=== PATIENT | female | born 1965 | race Caucasian/White ===

== ENCOUNTER 2017-01-06 11:19 | Observation (INO) ==
[2017-01-06] MEDS ORDERED: 0.9 % Sodium Chloride 1,000 ML IVC ONE ×2 (11:23→13:59)
[2017-01-06] MEDS ORDERED: Ondansetron 4 MG/2 ML VIAL IVP ONE ×2 (11:36→14:06)
[2017-01-06] MEDS ORDERED: *HR* HYDROmorphone (PF) 1 MG/ML SYRINGE IVP ONE ×4 (11:36→22:04)
--- NOTE | 2017-01-06 11:40 | Emergency Department Note ---
Disposition Clinical Impression: Vomiting, Abnormal chest x-ray, Upper abdominal pain, Obesity, Renal insufficiency, Gallbladder disease, Kidney stones, Abnormal urinalysis, Pulmonary nodule, Cholelithiasis, Constipation, Hydronephrosis, Elevated blood pressure reading Disposition: Admitted As Inpatient Referrals: NO,PCP [Primary Care Provider] - General Adult HPI - General Chief complaint: ED Abdominal Pain Stated complaint: Epigastric Pain Time Seen by Provider: 01/06/17 11:23 Source: patient, EMS Limitations: no limitations - History of Present Illness HPI Narrative: 51-year-old female sent from [place] ER for concerns regarding abdominal pain and possibly needing an ultrasound. The patient describes a 4 day history of upper abdominal pain with nonbloody emesis. There is no history of trauma. No diarrhea. No flank pain or back pain. There is no history of chest pain or shortness of breath. The patient is not anticoagulated. The patient has a history of hysterectomy but no other abdominal surgeries. There is no history of leg swelling or pain or coughing up blood no fever. No trouble moving the arms or legs independently no unilateral arm or leg weakness or numbness slurred speech or confusion. There is no history of cough runny nose ear pain or sore throat. The patient received analgesic medication at [place], but still describes severe pain. She has no personal history of aneurysm. A CT scan at that facility revealed bilateral kidney stones as well as gallstones and a potentially thickened gallbladder wall, laboratory testing showed no major abnormalities. Pain Scale: 0 - Related Data Home Medications Medication Instructions Recorded Confirmed Depakote (12 HR) 500 mg PO BID 05/10/15 01/06/17 Gabapentin [Neurontin] 800 mg PO TID 05/10/15 01/06/17 LORazepam [Ativan] 1 mg PO QID 05/10/15 01/06/17 Seroquel 1,000 mg PO HS 05/10/15 01/06/17 Oxycodone HCl/Acetaminophen 1 each PO Q6H PRN 01/06/17 01/06/17 [Percocet 10-325 mg Tablet] Phenazopyridine [Pyridium] 300 mg PO TID 01/06/17 01/06/17 Tamsulosin [Flomax] 0.4 mg PO BID 01/06/17 01/06/17 Allergies Allergy/AdvReac Type Severity Reaction Status Date / Time No Known Allergies Allergy Verified 01/06/17 07:42 All systems ED: reviewed and negative except as stated. Past Medical History - Past Medical History Medical history: Reports: hypertension, kidney stones, seizures Surgical history: Reports: ANA/BSO Psychiatric history: Reports: bipolar, depression - Social History Smoking Status: Current every day smoker Smokeless Tobacco Status: No Alcohol use: Reports: none Drug use: Reports: unknown Physical Exam - General Limitations: no limitations General appearance: alert, anxious - Head Head exam: atraumatic, normocephalic, normal inspection - Eye Eye exam: Present: normal appearance, PERRL, EOMI - ENT ENT exam: normal exam, normal oropharynx, mucous membranes moist, normal external ear exam - Neck Neck exam: Present: normal inspection, full ROM, trachea midline. Absent: tenderness - Chest Chest inspection: Present: symmetric chest wall rise. Absent: tenderness - Respiratory Respiratory exam: Present: normal lung sounds bilaterally. Absent: respiratory distress, wheezes, stridor, accessory muscle use, prolonged expiratory phase - Cardiovascular Cardiovascular exam: Present: regular rate, normal rhythm, normal heart sounds - Abdominal Exam Abdominal exam: Present: soft, tenderness. Absent: distention, guarding, rebound, rigidity, normal bowel sounds, diminished bowel sounds, tenderness at McBurney's Point, ascites, pulsatile mass, hernia Abdominal tenderness: Present: RUQ, epigastrium, severe - Extremities Exam Extremities exam: Present: normal inspection, full ROM, normal capillary refill. Absent: tenderness, pedal edema, joint swelling, calf tenderness - Expanded Lower Extremity Exam Neurovascular/Tendon exam: Present: normal capillary refill. Absent: motor deficit, sensory deficit, tendon deficit, extremity cold to touch, pallor - Back Exam Back exam: Present: normal inspection, full ROM. Absent: tenderness, CVA tenderness (R), CVA tenderness (L), vertebral tenderness - Neurological Exam Neurological exam: Present: alert, oriented X3, CN II-XII intact. Absent: motor sensory deficit - Psychiatric Psychiatric exam: Present: anxious - Skin Skin exam: Present: warm, dry, intact, normal color. Absent: rash, cyanosis, diaphoresis, erythema, pallor, mottled Course Vital Signs Temperature 97.6 F 01/06/17 11:19 Pulse Rate 72 01/06/17 11:19 Respiratory Rate 15 01/06/17 11:19 Blood Pressure 179/114 01/06/17 11:19 O2 Sat by Pulse Oximetry 93 01/06/17 11:19 Temperature 97.6 F 01/06/17 11:19 Pulse Rate 78 01/06/17 12:52 Respiratory Rate 18 01/06/17 12:52 Blood Pressure 184/78 01/06/17 12:52 O2 Sat by Pulse Oximetry 96 01/06/17 12:52 Oxygen Delivery Oxygen Delivery Room Air Medical Decision Making - MDM Narrative Medical decision making narrative: The patient describes severe abdominal pain. She has right upper quadrant and midepigastric pain on examination. Her CT scan suggests gallbladder disease, her ultrasound also shows abnormalities with potential concerns for ductal obstruction. Based on her pain and abnormal gallbladder studies, I called Dr. Portillo and reviewed the case with him, he recommends medical admit, MRCP, and surgical consultation. Discussed the case with Dr. Galvan, hospitalist on-call who has accepted the patient to his care. Zosyn recommended, Zosyn ordered. MRCP ordered. The patient does have a chest x-ray abnormality as well, Levaquin initially dosed. Cardiac testing essentially negative. Lactate negative. CRP minimal elevation. Acute or acute on chronic cholecystitis with possible ductal obstruction, cholelithiasis noted. The patient has multiple abnormal findings on her CT including kidney stones with an element of hydronephrosis. Initial admission per hospitalist service with surgical consult which has been ordered. The patient is stable pending admission. - Lab Data Lab results reviewed: Yes I reviewed the patient's lab results. Lab Results 01/06/17 01/06/17 01/06/17 Range/Units 13:18 13:18 13:18 PT 11.2 (9.4-12.1) Seconds INR 1.0 APTT 31.9 (26.0-36.0) Seconds Lactic Acid 1.2 (0.5-2.2) mmol/L Troponin I 0.01 (0-0.03) ng/mL C-Reactive Protein (Less than 5) mg/L 01/06/17 Range/Units 13:18 PT (9.4-12.1) Seconds INR APTT (26.0-36.0) Seconds Lactic Acid (0.5-2.2) mmol/L Troponin I (0-0.03) ng/mL C-Reactive Protein 11 H (Less than 5) mg/L - Radiology Data Radiology results reviewed: Yes I reviewed the patient's radiology results.
[2017-01-06] MEDS ORDERED: Levofloxacin 750 MG/150 ML 750 MG/150 ML BAG IVPB ONE (13:22)
[2017-01-06 13:30] LABS: Prothrombin Time 11.2 Seconds (9.4-12.1)
[2017-01-06 13:32] LABS: Activated Partial Thrombo Time 31.9 Seconds (26.0-36.0)
[2017-01-06] MEDS ORDERED: Piperacillin/Tazobactam 3.375 GM in D5% in Water (Mini-Bag+) 100 ML IVPB ONE (13:56)
[2017-01-06] MEDS ORDERED: Naloxone 0.4 MG/ML INJ IVP PRN (15:28)
[2017-01-06] MEDS ORDERED: Ondansetron 4 MG/2 ML VIAL IVP PRN (15:30)
[2017-01-06] MEDS ORDERED: *HR* HYDROmorphone (PF) 1 MG/ML SYRINGE IVP PRN ×2 (15:30→18:07)
[2017-01-06] MEDS ORDERED: 0.9 % Sodium Chloride 1,000 ML IVC SCH (15:30)
[2017-01-06] MEDS: *HR* LORazepam 1 MG TABLET PO SCH ×2 (16:57→22:34)
--- NOTE | 2017-01-06 17:04 | Internal Med History&Physical ---
<Jaun Galvan - Last Filed: 01/06/17 20:34> Date of Encounter: 01/06/17 Internal Medicine - H&P: HPI History of present illness: Ms. Ramirez is a 51 year old female Internal Medicine - H&P: Meds Divalproex (12 HR) [Depakote (12 HR)] 500 mg PO BID #0 05/10/15 [History] Gabapentin [Neurontin] 800 mg PO TID 05/10/15 [History] LORazepam [Ativan] 1 mg PO QID 05/10/15 [History] Quetiapine Fumarate [Seroquel] 1,200 mg PO HS #0 05/10/15 [History] Oxycodone HCl/Acetaminophen [Percocet 10-325 mg Tablet] 1 tab PO Q6H PRN [History] Phenazopyridine [Pyridium] 300 mg PO TID 01/06/17 [History] Tamsulosin [Flomax] 0.4 mg PO BID 01/06/17 [History] Allergies No Known Allergies Allergy (Verified 01/06/17 07:42) All Systems PM: A 10-system review of systems was performed and is negative for pertinent findings except as documented above in the HPI. - Constitutional Vitals: Temp Pulse Resp BP Pulse Ox 98.5 F 74 18 178/102 94 01/06/17 19:19 01/06/17 19:19 01/06/17 19:19 01/06/17 19:19 01/06/17 19:19 - Attending Attestation I examined this patient and my medical decision-making was reviewed with the Advanced Practice Nurse. I agree with the documented findings, disposition and treatment plan as described except to the extent set forth below. We will treat her with broad-spectrum IV antibiotics to cover gram negatives and anaerobes. Zosyn as an adequate choice. On exam she is very tender to palpation in the right upper quadrant with voluntary guarding. Plan: IV Zosyn. IV Dilaudid for pain. General surgical consult. She is at high risk for morbidity and complications due to administration of IV controlled substances. <Vania Mejia - Last Filed: 01/07/17 00:44> Date of Encounter: 01/07/17 Time of Encounter: 17:03 Assessment and Plan (1) Cholelithiasis Current visit: Yes Status: Acute Patient has been experiencing 4 days of epigastric to right upper quadrant pain nausea and vomiting unable to eat or drink. CT scan did reveal cholelithiasis with mild wall thickening of the gallbladder and questionable mild prominence of con common bile duct ultrasound was obtained which revealed cholelithiasis and abnormal gallbladder findings are nonspecific chronic or acute cholecystitis is difficult to exclude common bile duct dilatation. Surgery was consult did who suggested MRCP which was ordered We will continue nothing by mouth status IV fluids Pain medication IV opioids-close monitoring due to high risk medication Started on Zosyn Qualifiers: Cholelithiasis location: bile duct Cholecystitis presence: with cholecystitis Cholecystitis acuity: acute and chronic Biliary obstruction: without biliary obstruction Qualified Code(s): K80.46 - Calculus of bile duct with acute and chronic cholecystitis without obstruction (2) Hydronephrosis Current visit: Yes Status: Acute 1 patient has a past history of chronic kidney stones CT of abdomen did reveal nonobstructing right renal calculi mild dilatation of the proximal collecting system of both the right and left kidney no definite obstructing stone is identified ultrasound revealed moderate right hydronephrosis. We will continue with IV fluids as well as pain medication We will obtain urinalysis rule out possible infection Qualifiers: Hydronephrosis type: other Qualified Code(s): N13.39 - Other hydronephrosis (3) DVT prophylaxis Current visit: Yes Status: Acute 1 Lovenox (4) History of seizures Current visit: No Status: Chronic Patient states she has history of seizures last seizure was 3 weeks ago we will continue with her Depakote will place patient on seizure precautions Internal Medicine - H&P: HPI Chief complaint: abd pain Admitted From: Emergency Dept History of present illness: Ms. Ramirez is a 51 year old female past medical history of hypertension kidney stones and seizures bipolar depression. Patient describes severe abdominal pain nausea vomiting over the past 4 days originating in right upper quadrant and mid epigastric area she denies any hematemesis or diarrhea flank pain or back pain. No recent trauma. She denies any shortness of breath or chest pain. Patient is not on any anticoagulation she does have a history of hysterectomy but no other abdominal surgeries. She denies any fevers chills she states that her last seizure was approximately 3 weeks ago her last BM was 3 days ago. She presented to [place] emergency department for evaluation CT scan was suggest gallbladder disease, revealed gallstones and potential thickened gallbladder wall. She was sent from [place] ER to this facility for further evaluation and workup. In our ER she underwent ultrasound which was concerning for ductal obstruction. Lab work and a lactate of 1.2 troponin 0.01 CRP was 11 WBC 9.9 ER physician did speak with Dr. Duffy and reviewed the case with him. Recommended a MRCP, surgery consult. Patient was admitted for further workup and evaluation. Presently the patient does not appear to be in any respiratory distress she denies any chest pain her lung sounds are clear heart sounds are S1 and S2 with no rubs clicks, murmurs noted she does complain of epigastric pain abdomen is soft tenderness to epigastric to right upper quadrant with guarding. Presently patient is hemodynamically stable I reviewed this case with Dr. Galvan who agrees with plan. Past Med Surg Social Fam HX - Past Medical History Medical history: hypertension, kidney stones, seizures Psychiatric history: bipolar, depression - Past Surgical History Surgical History: ANA/BSO - Social History Smoking Status: Current every day smoker Smokeless Tobacco Status: No Alcohol use: none Drug use: unknown - Family History Mother Living Status: Hx Family Cardiac Disorders: Yes Hx Family Respiratory Disorders: No Hx Family Cancer: No Hx Family GI Disorders: No Hx Family Genitourinary Disorders: No Hx Family Endocrine Disorder: No Hx Family Musculoskeletal Disorders: No Hx Family Neuromuscular Disorders: No All Systems PM: A 10-system review of systems was performed and is negative for pertinent findings except as documented above in the HPI. - Constitutional Constitutional: no chills, no fever(s), no night sweats - EENT Eyes: no change in vision, no discharge, no pain, no photophobia Nose, mouth and throat: no dysphagia, no nasal discharge, no neck pain, no sore throat - Cardiovascular Cardiovascular ROS IM: no chest pain, no diaphoresis, no dyspnea, no lightheadedness, no palpitations, no syncope - Respiratory Respiratory: no cough, no dyspnea, no wheezing, no excessive phlegm production - Gastrointestinal Gastrointestinal: abdominal pain, nausea, vomiting - Genitourinary Genitourinary: no change in urinary stream, no dysuria, no flank pain, no hematuria - Musculoskeletal Musculoskeletal ROS IM: no numbness, no tingling - Integumentary Integumentary IM: no rash, no unusual bruising - Neurological Neurological ROS: no confusion, no convulsions, no focal weakness, no numbness, no tingling, no tremor(s) - Hematologic/Lymphatic Hematologic/Lymphatic: no easy bruising - Constitutional Vitals: Temp Pulse Resp BP Pulse Ox 97.6 F 78 17 182/119 94 01/06/17 11:19 01/06/17 14:24 01/06/17 14:34 01/06/17 14:34 01/06/17 14:24 General appearance: Present: A&O X 3, answers questions appropriately - Head Head exam: Present: atraumatic, normocephalic - Eye Eye exam: Present: PERRL, conjuntiva pink, sclera anicteric Pupils: Present: PERRL - Neck Neck exam general surgery: Present: supple, trachea midline. Absent: lymphadenopathy - Respiratory Respiratory exam: Present: CTAB. Absent: accessory muscle use, rales, rhonchi, wheezes - Cardiovascular Cardiovascular exam: Present: RRR, +S1, +S2. Absent: diastolic murmur, gallop, rubs, systolic murmur - GI/Abdominal GI/Abdominal exam: Present: guarding, normal bowel sounds, soft, tenderness, no peritoneal signs. Absent: distended - Extremities Exam Extremities exam: Present: warm, radial pulses palpable and symetrical. Absent : calf tenderness, cyanotic, pedal edema - Neurological Exam Neurological exam: Present: CN II-XII intact, oriented X3, no focal deficits. Absent: pronater drift, facial droop, speech deficit - Skin Skin exam: Present: dry, intact Internal Med - H&P Results - Labs Labs: Lab work per [facility] chemistry sodium 141 potassium 3.8 chloride 108 bicarbonate 20 BUN 18 creatinine 1.17 glucose 118 CBC CBC 9.9 hemoglobin 13.5 hematocrit 41.5 is 347 Lactate 1.2 troponin 0.01 CRP 11 PT 11.2 INR 1 PTT 31.9
[2017-01-06] MEDS: Piperacillin/Tazobactam 3.375 GM in D5% in Water (Mini-Bag+) 100 ML IVPB SCH (22:33)
[2017-01-06] MEDS: Divalproex (12 HR) 500 MG TABLET PO SCH (22:34)
[2017-01-07 01:59] LABS: Basophils # 0.1 K/mcL (0.0-0.2); Basophils % 0.4 %; Eosinophils # 0.1 K/mcL (0.0-0.6); Eosinophils % 0.4 %; Hematocrit 39.1 % (35.3-44.9); Hemoglobin 12.7 g/dL (11.5-15.4); Immature Granulocytes % 0.4 % (0-4); Immature Platelets 2.3 % (1.1-6.1); Lymphocytes % 14.2 %; Mean Corpuscular HGB Conc 32.5 g/dL (31.6-35.5); Mean Corpuscular Hemoglobin 28.5 pg (28.0-33.3); Mean Corpuscular Volume 87.7 fL (83.0-100.0); Monocytes # 0.9 K/mcL (0.0-1.3); Monocytes % 6.8 %; Neutrophils # 10.8 K/mcL (1.6-8.9); Platelet Count 325 K/mcL (140-400); Red Blood Count 4.46 M/mcL (3.82-4.97); Red Cell Distribution Width 13.6 % (11.5-14.5); Segmented Neutrophils % 77.8 %
[2017-01-07 02:10] LABS: BUN/Creatinine Ratio 9 (6-26); Blood Urea Nitrogen 8 mg/dL (7-20); Calcium 8.8 mg/dL (8.6-10.8); Carbon Dioxide 22 mEq/L (19-29); Chloride 109 mEq/L (98-109); Glucose 120 mg/dL (70-99); Magnesium 1.6 mg/dL (1.6-2.6); Osmolality,Calculated 288 (280-300); Potassium 3.4 mEq/L (3.5-4.5); Sodium 139 mEq/L (136-145); eGFR For African Americans > 60 (> 60); eGFR For Non-African Americans > 60 (> 60)
[2017-01-07] MEDS: *HR* HYDROmorphone 2 MG/ML SYRINGE IVP PRN ×2 (04:10→07:50)
[2017-01-07 05:23] LABS: Bilirubin,Urine Negative (Negative); Blood,Urine Negative (Negative); Clarity,Urine Clear (Clear); Color,Urine Yellow (Yellow); Glucose,Urine (UA) Normal (Normal); Ketones,Urine Negative (Negative); Leukocyte Esterase,Urine Negative (Negative); Nitrite,Urine Negative (Negative); PH,Urine 6.5 pH Units (5.0-8.0); Protein,Urine Negative (Neg-Trace); Specific Gravity,Urine 1.013 (1.010-1.025); Urobilinogen,Urine Normal (Normal)
[2017-01-07] MEDS: Piperacillin/Tazobactam 3.375 GM in D5% in Water (Mini-Bag+) 100 ML IVPB SCH (05:59)
[2017-01-07] MEDS: 0.9 % Sodium Chloride 1,000 ML IVC SCH ×3 (05:59→18:46)
[2017-01-07] MEDS ORDERED: *HR* Enoxaparin 40 MG/0.4 ML SYRINGE SQ SCH (06:00)
[2017-01-07] MEDS: Divalproex (12 HR) 500 MG TABLET PO SCH ×2 (07:50→20:15)
[2017-01-07] MEDS ORDERED: Pantoprazole 40 MG VIAL IVP SCH (09:00)
[2017-01-07] MEDS: *HR* HYDROmorphone (PF) 1 MG/ML SYRINGE IVP PRN ×9 (10:29→22:56)
[2017-01-07] MEDS ORDERED: *HR* LORazepam 1 MG TABLET PO SCH (12:30)
[2017-01-07] MEDS ORDERED: Albuterol 2.5 MG/3 ML NEBULIZER IH STA (13:59)
--- NOTE | 2017-01-07 14:05 | General Surgery Consult Note ---
Date of Encounter: 01/07/17 Time of Encounter: 13:30 History of Present Illness Reason for consult: gallstones Requesting physician: Bayron Moreno History of present illness: 51-year-old female, referred to [facility], after being transferred from [facility] for further evaluation severe upper abdominal pain with nausea and vomiting over the past 4 days. Patient describes pain in the right upper quadrant and epigastrium. CT of the abdomen and pelvis completed [facility] showed a distended gallbladder with mild degree of wall thickening. Several stones were seen within the gallbladder along with mild dilatation of the common bile duct. There was possible prominence of the portal triads though this finding was limited by the lack of oral IV contrast. Dilatation of the proximal renal collecting system on the left without obstructing calculus was identified. The right kidney demonstrated multiple nonobstructing calculi with a cluster of calcifications in the inferior pole. The bowel and colon appeared normal the appendix was visualized also appeared normal. Evidence of previous hysterectomy was noted. The patient's symptomatology and CT findings were consistent with acute cholecystitis for which the patient was transferred to [facility] for further evaluation. An ultrasound of the gallbladder completed shortly after arrival at [facility] showed moderate right hydronephrosis, sludge and multiple stones within the gallbladder with oral and gallbladder wall thickening. No pericholecystic fluid was identified and the sonographic Martin sign was not elicited. Due to scribe dilatation of the common bile duct , 8.2 mm, an MRCP was completed. This showed numerous stones within the gallbladder, severe gallbladder wall thickening with pericholecystic fluid. The stone is impacted in the neck of the gallbladder likely the source of the patient's symptoms. There was no evidence of intra-or extrahepatic biliary duct dilatation no detected choledocholithiasis. These studies were all personally reviewed with [facility]. On presentation to [facility]: White count was 9.9, hemoglobin 13.5, hematocrit 41.5, platelet count 349,000. Differential was unremarkable. Electrolytes & Bun were within normal limits but creatinine was 1.17. LFTs were notable for an alkaline phosphatase of 128 the other LFTs were unremarkable. Amylase and lipase were normal at 22 and 31 respectively. Repeat labs completed this morning showed new development of a leukocytosis of 13.9; hemoglobin hematocrit diminished to 12.7 and 39.1, likely due to IV fluids/hydration; neutrophils are notably elevated at 10.8%. Potassium is full and the 3.4 but other electrolytes & BUN have remained WNL. The creatinine has normalized, 0.94. Alkaline phosphatase remains elevated at 127. Most recent urinalysis was unremarkable with a specific gravity 1.030, pH 6.5 with no urine protein, glucose, ketones or blood. Urine microscopic was also negative with no reported cell counts. Past medical history: Is notable for chronic, recurrent renal stones; seizure disorder; hypertension, bipolar disorder with depression Surgical history: Hysterectomy (ANA/BSO); multiple transurethral renal stone extractions Social history: Patient is a smoker on a daily basis; she denies any alcohol or drug use, however, a urine tox screen was positive for benzodiazepines and marijuana. physical examination: Age-appropriate woman resting comfortably in her hospital bed. She indicates that she is in distress due to her persistent abdominal pain. Vital signs: The patient has been afebrile, currently 98.3; pulse 63-77; respiratory rate 15-18; blood pressure 114/74. SPO2 on room air 94-96%. Skin is warm without obvious jaundice Lungs: Were clear to auscultation. There is no obvious pain on inspiration but when asked, the patient indicated that she did have pain on inspiration Heart: Regular rate, no appreciable murmurs Abdomen: Obese but soft with minimal epigastric and right upper quadrant tenderness. No obvious intra-abdominal masses, no rebound. Bowel sounds were hypoactive. I did not elicit any CVAT. Extremities without obvious clubbing cyanosis or edema Impression: 51-year-old female with acute calculus cholecystitis transferred to [facility] after presenting to [facility] with 4 day history severe right upper and epigastric abdominal pain, N/V. No N/V since transfer. The patient was examined; CT, USGB and MRCP were personally reviewed along with the pertinent labs. Surgery was recommended and discussed with the patient. The patient is a reasonable candidate for laparoscopic cholecystectomy but understands that an open cholecystectomy may become necessary. Risks surgery including hemorrhage, infection, intra-abdominal abscess, bile leak, injury to adjacent ducts, vessels, organs, or bowel. Potential cardiac and respiratory risks such as dysrhythmia, ND, and pneumonia were also discussed. Postcholecystectomy diarrhea may also develop. The patient is breast understanding and is willing to proceed with surgery. This be villanueva today and be completed as soon as possible. Past Med Surg Social Fam HX - Past Medical History Medical history: hypertension, kidney stones, seizures Psychiatric history: bipolar, depression - Past Surgical History Surgical History: ANA/BSO - Social History Smoking Status: Current every day smoker Smokeless Tobacco Status: No Alcohol use: none Drug use: unknown - Family History Mother Living Status: Hx Family Cardiac Disorders: Yes Hx Family Respiratory Disorders: No Hx Family Cancer: No Hx Family GI Disorders: No Hx Family Genitourinary Disorders: No Hx Family Endocrine Disorder: No Hx Family Musculoskeletal Disorders: No Hx Family Neuromuscular Disorders: No Medications and Allergies Divalproex (12 HR) [Depakote (12 HR)] 500 mg PO BID #0 05/10/15 [History] Gabapentin [Neurontin] 800 mg PO TID 05/10/15 [History] LORazepam [Ativan] 1 mg PO QID 05/10/15 [History] Quetiapine Fumarate [Seroquel] 1,200 mg PO HS #0 05/10/15 [History] Oxycodone HCl/Acetaminophen [Percocet 10-325 mg Tablet] 1 tab PO Q6H PRN [History] Phenazopyridine [Pyridium] 300 mg PO TID 01/06/17 [History] Tamsulosin [Flomax] 0.4 mg PO BID 01/06/17 [History] Allergies No Known Allergies Allergy (Verified 01/06/17 07:42) Review of Systems All systems PM: A 10-system review of systems was performed and is negative for pertinent findings except as documented above in the HPI. General Surgery Exam Initial Vital Signs Temp Pulse Resp BP Pulse Ox 97.6 F 72 15 179/114 93 01/06/17 11:19 01/06/17 11:19 01/06/17 11:19 01/06/17 11:19 01/06/17 11:19 Exam Initial Vital Signs Temp Pulse Resp BP Pulse Ox 97.6 F 72 15 179/114 93 01/06/17 11:19 01/06/17 11:19 01/06/17 11:19 01/06/17 11:19 01/06/17 11:19 Results - Labs 01/07/17 01:39 01/07/17 01:39 Abnormal lab results WBC 13.9 K/mcL (4.3-11.1) H 01/07/17 01:39 MPV 9.0 fL (9.4-12.4) L 01/07/17 01:39 Neutrophils # 10.8 K/mcL (1.6-8.9) H 01/07/17 01:39 Potassium 3.4 mEq/L (3.5-4.5) L 01/07/17 01:39 Glucose 120 mg/dL (70-99) H 01/07/17 01:39 POC Glucose 94 (58-89) H 01/07/17 11:24 Alkaline Phosphatase 127 Units/L (38-126) H 01/07/17 01:39 C-Reactive Protein 11 mg/L (Less than 5) H 01/06/17 13:18 Diabetes panel 01/07/17 01/07/17 Range/Units 01:39 01:39 Sodium 139 (136-145) mEq/L Potassium 3.4 L (3.5-4.5) mEq/L Chloride 109 (98-109) mEq/L Carbon Dioxide 22 (19-29) mEq/L BUN 8 D (7-20) mg/dL Creatinine 0.94 (0.57-1.11) mg/dL Glucose 120 H (70-99) mg/dL Calcium 8.8 (8.6-10.8) mg/dL Alkaline Phosphatase 127 H (38-126) Units/L Calcium panel 01/07/17 Range/Units 01:39 Calcium 8.8 (8.6-10.8) mg/dL Pituitary panel 01/07/17 Range/Units 01:39 Sodium 139 (136-145) mEq/L Potassium 3.4 L (3.5-4.5) mEq/L Chloride 109 (98-109) mEq/L Carbon Dioxide 22 (19-29) mEq/L BUN 8 D (7-20) mg/dL Creatinine 0.94 (0.57-1.11) mg/dL Glucose 120 H (70-99) mg/dL Calcium 8.8 (8.6-10.8) mg/dL Adrenal panel 01/07/17 01/07/17 Range/Units 01:39 01:39 Sodium 139 (136-145) mEq/L Potassium 3.4 L (3.5-4.5) mEq/L Chloride 109 (98-109) mEq/L Carbon Dioxide 22 (19-29) mEq/L BUN 8 D (7-20) mg/dL Creatinine 0.94 (0.57-1.11) mg/dL Glucose 120 H (70-99) mg/dL Calcium 8.8 (8.6-10.8) mg/dL Alkaline Phosphatase 127 H (38-126) Units/L All other labs normal. Consult Discharge Plan - Plan Referrals: NO,PCP [Primary Care Provider] -
[2017-01-07] MEDS ORDERED: 0.9 % Sodium Chloride 1,000 ML IVC SCH (14:15)
[2017-01-07] MEDS ORDERED: Bupivacaine/EPI 1:200k 0.25%PF 30 ML VIAL ONE (14:40)
[2017-01-07] MEDS ORDERED: Gabapentin 300 MG CAPSULE PO SCH (15:00)
--- NOTE | 2017-01-07 15:14 | Anesthesia Evaluation PreOp ---
Date of Encounter: 01/07/17 Time of Encounter: 15:12 - Past History Planned Operation: Laparoscopic Cholecystectomy Cardiac History: HTN Pulmonary History: Smoker (15 years) [employer] History: Seizures (well controlled on meds. last seizure 1 month ago) Other Medical History: Other (bipolar) Anesthesia History: No Prior Anesthetic Complications, Past Anesthesia (TAHBSO) Alcohol Use: none Drug use: unknown Medications and Allergies Divalproex (12 HR) [Depakote (12 HR)] 500 mg PO BID #0 05/10/15 [History] Gabapentin [Neurontin] 800 mg PO TID 05/10/15 [History] LORazepam [Ativan] 1 mg PO QID 05/10/15 [History] Quetiapine Fumarate [Seroquel] 1,200 mg PO HS #0 05/10/15 [History] Oxycodone HCl/Acetaminophen [Percocet 10-325 mg Tablet] 1 tab PO Q6H PRN [History] Phenazopyridine [Pyridium] 300 mg PO TID 01/06/17 [History] Tamsulosin [Flomax] 0.4 mg PO BID 01/06/17 [History] Allergies No Known Allergies Allergy (Verified 01/06/17 07:42) - Meds/Allergy Pre-op Review Medications Reviewed: Yes Allergies Reviewed: Yes Beta Blockers on Current Med List: No Anesthesia Results - Labs 01/07/17 01:39 01/07/17 01:39 - Imaging EKG: report reviewed (01/06/2017 SR, low QRS voltage in precordial leads) Anesthesia Exam Vital Signs/O2 Sat, Most Current Temp Pulse Resp BP Pulse Ox 98.3 F 77 16 114/74 94 01/07/17 11:21 01/07/17 11:21 01/07/17 14:32 01/07/17 11:21 01/07/17 14:32 Height: 5'9''/1.75 m Weight: 186 lbs/84.8 kg NPO (# of Hours): 8 Pain Scale: 0 Pain Scale Used: Numeric (1 - 10) - HEENT Pupil (Motor): EOMI Mallampati: II Teeth: Poor dentition (multiple broken teeth) Oral Opening: Greater than 3 - [employer] LOC: Oriented [employer] Motor: Normal RUE, Normal LUE, Normal RLE, Normal LLE, Normal Face [employer] Sensory: Normal: RUE, LUE, RLE, LLE, Face - Cardiac Rhythm: Regular Murmur: None - Pulmonary Breath Sounds: bilateral Clear Respiratory Effort: Symmetrical Anesthesia Assess/Plan ASA Score: 2 Modified Alcira Scale for Level of Consciousness: Cooperative, oriented, and tranquil Anesthetic Plan: General Monitoring Plan: Standard Monitors Recovery Plan: PACU
[2017-01-07] MEDS ORDERED: *HR* FentaNYL (PF) 100 MCG/2 ML VIAL ONE (15:27)
[2017-01-07] MEDS ORDERED: Lidocaine -MPF 4% 5 ML AMPUL ONE (15:27)
[2017-01-07] MEDS ORDERED: Lidocaine -MPF 2% 2 ML VIAL ONE ×2 (15:27)
[2017-01-07] MEDS ORDERED: *HR* Propofol 200 MG/20 ML VIAL IVP ONE ×2 (15:27→15:58)
[2017-01-07] MEDS ORDERED: *HR* Succinylcholine 200 MG/10 ML VIAL IVP ONE (15:27)
[2017-01-07] MEDS ORDERED: Ondansetron 4 MG/2 ML VIAL ONE (15:34)
[2017-01-07] MEDS ORDERED: Neostigmine Methylsulfate 3 MG/3 ML SYRINGE ONE (15:34)
[2017-01-07] MEDS ORDERED: Dexamethasone 4 MG/ML VIAL ONE (15:34)
[2017-01-07] MEDS ORDERED: *HR* Rocuronium Bromide 50 MG/5 ML VIAL ONE (15:35)
[2017-01-07] MEDS ORDERED: *HR* HYDROmorphone 2 MG/ML SYRINGE ONE (15:51)
[2017-01-07] MEDS ORDERED: Albuterol 2.5 MG/3 ML NEBULIZER IH ONE ×2 (16:00→17:10)
--- NOTE | 2017-01-07 16:01 | Internal Med Progress Note ---
Date of Encounter: 01/07/17 Time of Encounter: 15:58 - Assessment and plan (1) Acute cholecystitis Current Visit: Yes Status: Acute (2) Renal insufficiency Current Visit: Yes Status: Acute (3) DVT prophylaxis Current Visit: Yes Status: Acute - Subjective Interval history: Cely Linda is a 51-year-old female brought in for abdominal pain and acute cholecystitis. Surgery has seen the patient and plan to do surgery today. Patient is awake and does not seem in any discomfort. Examination of the belly showed some tenderness but otherwise unremarkable. - Constitutional Vitals: Temp Pulse Resp BP Pulse Ox 98.3 F 77 16 114/74 94 01/07/17 11:21 01/07/17 11:21 01/07/17 14:32 01/07/17 11:21 01/07/17 14:32 General appearance: Present: A&O X 3, answers questions appropriately - Head Head exam: Present: atraumatic, normocephalic - Eye Eye exam: Present: PERRL, conjuntiva pink, sclera anicteric Pupils: Present: PERRL - Neck Neck exam general surgery: Present: supple, trachea midline. Absent: lymphadenopathy - Respiratory Respiratory exam: Present: CTAB. Absent: accessory muscle use, rales, rhonchi, wheezes - Cardiovascular Cardiovascular exam: Present: RRR, +S1, +S2. Absent: diastolic murmur, gallop, rubs, systolic murmur - GI/Abdominal GI/Abdominal exam: Present: normal bowel sounds, soft, tenderness, no peritoneal signs. Absent: distended - Extremities Exam Extremities exam: Present: warm, radial pulses palpable and symetrical. Absent : calf tenderness, cyanotic, pedal edema - Neurological Exam Neurological exam: Present: CN II-XII intact, oriented X3, no focal deficits. Absent: pronater drift, facial droop, speech deficit - Skin Skin exam: Present: dry, intact Internal Medicine: Result - Labs CBC & Chem 7: 01/07/17 01:39 01/07/17 01:39 Labs: Short CBC 01/07/17 Range/Units 01:39 WBC 13.9 H (4.3-11.1) K/mcL Hgb 12.7 (11.5-15.4) g/dL Hct 39.1 (35.3-44.9) % Plt Count 325 (140-400) K/mcL Neutrophils # 10.8 H (1.6-8.9) K/mcL BMP 01/07/17 01:39 Sodium 139 Potassium 3.4 L Chloride 109 Carbon Dioxide 22 BUN 8 D Creatinine 0.94 Glucose 120 H Calcium 8.8 Liver Function 01/07/17 Range/Units 01:39 Alkaline Phosphatase 127 H (38-126) Units/L Urine 01/07/17 Range/Units 05:00 Urine Color Yellow (Yellow) Urine Clarity Clear (Clear) Urine pH 6.5 (5.0-8.0) pH Units Ur Specific Kaplan 1.013 (1.010-1.025) Urine Protein Negative (Neg-Trace) mg/dL Urine Glucose (UA) Normal (Normal) mg/dL - ABG Interpretation ABG results: PT/INR, D-dimer PT 11.2 Seconds (9.4-12.1) 01/06/17 13:18 Consult Discharge Plan - Plan Referrals: NO,PCP [Primary Care Provider] -
[2017-01-07] MEDS ORDERED: *HR* Promethazine 25 MG/ML VIAL IVP PRN (16:07)
[2017-01-07] MEDS ORDERED: Ringers Solution, Lactated 500 ML IVC ONE ×2 (17:06→17:30)
--- NOTE | 2017-01-07 17:16 | Operative Note ---
Date of procedure: 01/07/17 Pre-op diagnosis: acute calculus cholecystitis Post-op diagnosis: same Procedure: Laparoscopic cholecystectomy Complications: None apparent Anesthesia: GETA Local Anesthetics: 0.25% Sensorcaine HCL with Epinephrine 1:200,000 SubQ (cc) ( 18 mL) Surgeon: Miguel Portillo Estimated blood loss (cc): 200 IV fluids (cc): 1,300 Specimen: gallbladder Condition: stable Disposition: PACU Procedure in Detail: The patient was brought to the operating room where she was placed supine upon the operating table. The patient was appropriately identified as to person and procedure. The accuracy of this information was confirmed by the procedure team. The patient was intubated and anesthetized under the supervision of Dr. Merlyn Rowell. The abdomen was prepped and draped in usual sterile fashion. The gallbladder was not palpable when the abdomen was examined under anesthesia. Several milliliters of 0.25% bupivacaine with 1-200,000 epinephrine was infiltrated into the infraumbilical skin. A small transverse incision was made, dissection was carried to the fascia. Additional bupivacaine with epinephrine was infiltrated into the fascia. The fascia was grasped, elevated, and incised. An 11 mm Xcel port was established. The rigid laparoscope was placed within the obturator to visualize passage through the layers of the anterior abdominal wall. Once the abdominal cavity was accessed, the obturator was replaced by the rigid laparoscope. The abdomen was insufflated with gaseous carbon dioxide. There was no obvious visible injury from established in the port. Under direct visualization, 3 additional ports were placed along the right costal margin in the subxiphoid, midclavicular, and anterior axillary lines. The gallbladder was tensely distended and was aspirated of a proximally 60 mL of a green turbid fluid. The gallbladder was thick-walled but grasped and retracted. Multiple adhesions of omentum and duodenum were evident adherent to the infundibulum of the gallbladder. These adhesions were sharply dissected, care was taken to avoid injuring these adjacent structures such as the duodenum. The hepatoduodenal ligament was selected. Eventually the cystic duct was identified and skeletonized. The cystic duct measured approximately 1 cm in diameter. Cystic duct was clipped twice distally and once near the infundibulum of gallbladder. The cystic duct was then divided. Cystic artery was identified, skeletonized, clipped twice proximally, clipped once distally, and divided. The gallbladder was dissected from the liver bed using the Ethicon harmonic ne. Once the gallbladder was from the liver bed, it was placed in the endoscopic pouch and removed through the infraumbilical opening. The gallbladder and its contained stones were recovered and sent to pathology for analysis. The liver bed demonstrated some some hemorrhage which was partially controlled by additional application of the Ethicon harmonic ne and then further controlled with application of the Yasmeen hemostatic agent. Enoxaparin had been administered to the patient pre op. Once adequate hemostasis was achieved, the pneumoperitoneum was evacuated, the instrumentation was removed. The fascia of the infraumbilical opening was closed with interrupted [id number] 0 Vicryl using S retractors. The skin edges of the port sites were approximated with 4-0 subcuticular Vicryl. The incisions were sealed with Dermabond dermal adhesive. The patient was taken to recovery in stable condition. Needle, sponge, and instrument counts were correct at the close of the case.
[2017-01-07] MEDS ORDERED: Acetaminophen IV 1,000 MG/100 ML INFUS..BTL IVPB ONE (17:20)
--- NOTE | 2017-01-07 18:07 | Anesthesia Evaluation Post Op ---
Date of Encounter: 01/07/17 Time of Encounter: 18:05 - Vital Signs Vital Signs: Vital Signs - Last 8 Hours Temp Pulse Resp BP Pulse Ox 01/07/17 18:03 97.4 F L 73 20 156/96 93 01/07/17 17:53 74 24 148/97 92 01/07/17 17:43 73 24 136/93 93 01/07/17 17:33 97.4 F L 73 24 121/87 96 01/07/17 17:23 74 24 117/79 92 01/07/17 17:13 95 24 94/74 90 01/07/17 17:03 98.0 F 86 24 93/83 90 01/07/17 14:32 16 94 01/07/17 11:21 98.3 F 77 15 114/74 94 Intake and Output 01/07/17 01/07/17 01/07/17 07:59 15:59 23:59 Intake Total 243 / 243 1100 / 1100 500 / 500 Output Total 350 / 350 0 / 0 200 / 200 Balance -107 / -107 1100 / 1100 300 / 300 Intake: IV Fluids 243 / 243 1100 / 1100 500 / 500 0.9 % Sodium Chloride 1, 143 / 143 1000 / 1000 000 ML @ 125 mls/hr IVC . Q8H [facility] Rx#:[id number] Lactated Ringers 500 ML @ 500 / 500 1000 mls/hr IVC .Q30M ONE Rx#:[id number] Zosyn 3.375 GM In 100 / 100 100 / 100 Dextrose 5% (Minibag+) 100 ML 100 ML @ 25 mls/hr IVPB Q8H [facility] Rx#: [id number] Oral 0 / 0 Output: Urine 350 / 350 0 / 0 0 / 0 Estimated Blood Loss 200 / 200 Other: Meal NPO NPO Weight 84.8 kg Blood Glucose* 98 94 Patient Weight 01/07/17 23:59 Weight 84.8 kg - Lungs Lungs: Clear Ascult./Percussion - Airway Airway: Non-obstructed, Obstructed - Cardiovascular Regular Rate, Baseline Rhythm - Mental Status Mental Status: Alert & Oriented, Answers Appropriately - Pain Pain Scale: 3 (TOLERABLE WITH PAIN MEDS ) - Nausea Vomiting Nausea Vomiting: Not Present - Hydration Hydration: Tolerates oral liquids - Discharge PostOp Status: Transfer Patient to floor
[2017-01-07] MEDS ORDERED: Naloxone 0.4 MG/ML INJ IVP PRN (18:23)
[2017-01-07] MEDS ORDERED: Acetaminophen 325 MG TABLET PO PRN (18:23)
[2017-01-07] MEDS ORDERED: Ondansetron 4 MG/2 ML VIAL IVP PRN (18:23)
--- NOTE | 2017-01-07 18:57 | Electrocardiograph Report ---
[place] [address] Test Date: 2017-01-06 Pat Name: Vanesa Ramirez Department: 105 Room: 3A33 Gender: F [employer]: : 1965 Requested By: Bayron Moreno Order Number: [id number] Reading MD: Shantal Manzo Measurements Intervals [place] Rate: 73 P: 54 IN: 177 QRS: 23 QRSD: 97 T: 62 QT: 425 QTc: 451 Interpretive Statements SINUS RHYTHM POSSIBLE RIGHT VENTRICULAR CONDUCTION DELAY [RSR (QR) IN V1/V2] Electronically Signed On 01-07-2017 18:55:31 EDT by Shantal Manzo
[2017-01-07] MEDS: *HR* OxyCODONE/APAP 10/325 TABLET PO PRN (19:57)
[2017-01-07] MEDS: Gabapentin 300 MG CAPSULE PO SCH (20:15)
[2017-01-08] MEDS: *HR* HYDROmorphone (PF) 1 MG/ML SYRINGE IVP PRN ×5 (01:01→10:01)
[2017-01-08] MEDS: *HR* OxyCODONE/APAP 10/325 TABLET PO PRN ×3 (02:58→20:17)
[2017-01-08] MEDS: 0.9 % Sodium Chloride 1,000 ML IVC SCH (06:28)
[2017-01-08] MEDS ORDERED: Potassium Chloride Elixir 20 MEQ/15 ML UDC PO ONE (08:11)
[2017-01-08] MEDS: Gabapentin 300 MG CAPSULE PO SCH ×2 (08:24→16:21)
[2017-01-08] MEDS: Divalproex (12 HR) 500 MG TABLET PO SCH (08:24)
[2017-01-08] MEDS ORDERED: *HR* LORazepam 1 MG TABLET PO SCH (09:00)
[2017-01-08 09:02] LABS: Basophils % 0.2 %; Hematocrit 37.5 % (35.3-44.9); Hemoglobin 11.6 g/dL (11.5-15.4); Immature Granulocytes % 0.8 % (0-4); Lymphocytes # 0.9 K/mcL (0.6-4.6); Lymphocytes % 5.5 %; Mean Corpuscular HGB Conc 30.9 g/dL (31.6-35.5); Mean Corpuscular Hemoglobin 27.8 pg (28.0-33.3); Mean Corpuscular Volume 89.7 fL (83.0-100.0); Mean Platelet Volume 9.1 fL (9.4-12.4); Monocytes # 1.6 K/mcL (0.0-1.3); Monocytes % 9.6 %; Neutrophils # 14.1 K/mcL (1.6-8.9); Platelet Count 317 K/mcL (140-400); Red Blood Count 4.18 M/mcL (3.82-4.97); Red Cell Distribution Width 13.8 % (11.5-14.5); Segmented Neutrophils % 83.9 %
[2017-01-08 09:03] LABS: Alanine Aminotransferase 25 Units/L (0-55); Albumin 3.3 g/dL (3.5-5.0); Alkaline Phosphatase 122 Units/L (38-126); Aspartate Amino Transferase 32 Units/L (5-34); BUN/Creatinine Ratio 10 (6-26); Bilirubin,Total 0.5 mg/dL (0.2-1.2); Blood Urea Nitrogen 9 mg/dL (7-20); Calcium 9.1 mg/dL (8.6-10.8); Carbon Dioxide 23 mEq/L (19-29); Chloride 105 mEq/L (98-109); Globulin 3.3 g/dL (2.4-3.5); Glucose 123 mg/dL (70-99); Osmolality,Calculated 284 (280-300); Potassium 3.6 mEq/L (3.5-4.5); Sodium 137 mEq/L (136-145); Total Protein 6.6 g/dL (6.0-8.3); eGFR For African Americans > 60 (> 60); eGFR For Non-African Americans > 60 (> 60)
--- NOTE | 2017-01-08 10:22 | General Surgery Progress Note ---
Date of Encounter: 01/08/17 Time of Encounter: 09:55 Subjective Patient reports: still having pain Narrative: General Surgery - POD #1 - status post laparoscopic cholecystectomy Patient still complaining of pain, using IV Dilaudid hourly despite available oral analgesics Afebrile, 98.9; pulse currently 75, ranged 75-127; respiratory rate 18; blood pressure 163/97. SPO2 on 2 L/min nasal cannula 95% Lungs: Clear to auscultation Abdomen: Tenderness localized to the port sites; abdomen otherwise fairly unremarkable to exam. Active bowel sounds. Port sites clean and dry. Patient complaining of no appetite and has not eaten any of the meals provided Laboratories: White count 16.8, likely in response to surgery. Neutrophil percentage increased to 14.1. Hemoglobin 11.6 with hematocrit 37.5- slightly decreased, likely due to Perioperative IV fluids. Platelet count 317,000. Electrolytes, BUN, creatinine within normal limits; hypokalemia corrected to 3.6. LFTs within normal limits; alkaline phosphatase has normalized. Impression: POD #1 - status post laparoscopic cholecystectomy for acute calculous cholecystitis Acceptable postoperative status. Leukocytosis expected to resolve as healing progresses Patient complaining of incisional pain, using IV Dilaudid hourly. I have discussed this with the patient, recommending Tylenol and/or Percocet rather than IV Dilaudid. The IV Dilaudid will be discontinued. Oral analgesics are still available. Postoperative anorexia is common and also expected to resolve Objective Vital Signs - Last 8 Hours Temp Pulse Resp BP Pulse Ox 01/08/17 06:45 98.9 F 75 18 163/97 95 01/08/17 04:40 98.3 F 102 18 164/101 95 Intake and Output 01/07/17 01/08/17 01/08/17 23:59 07:59 15:59 Intake Total 500 / 500 925 / 925 120 / 120 Output Total 450 / 450 0 / 0 Balance 50 / 50 925 / 925 120 / 120 Intake: IV Fluids 500 / 500 925 / 925 0.9 % Sodium Chloride 1, 925 / 925 000 ML @ 75 mls/hr IVC . [id number] [facility] Rx#: [id number] Lactated Ringers 500 ML @ 500 / 500 1000 mls/hr IVC .Q30M [facility] Rx#:[id number] Oral 0 / 0 0 / 0 120 / 120 Output: Urine 250 / 250 0 / 0 Estimated Blood Loss 200 / 200 Other: Meal Breakfast Percent of Meal Consumed 0% # Voids 1 Weight 83.7 kg Blood Glucose* 123 Patient Weight 01/08/17 23:59 Weight 83.7 kg - Labs 01/08/17 08:20 01/08/17 08:20 Diabetes panel 01/08/17 Range/Units 08:20 Sodium 137 (136-145) mEq/L Potassium 3.6 (3.5-4.5) mEq/L Chloride 105 (98-109) mEq/L Carbon Dioxide 23 (19-29) mEq/L BUN 9 (7-20) mg/dL Creatinine 0.89 (0.57-1.11) mg/dL Glucose 123 H (70-99) mg/dL Calcium 9.1 (8.6-10.8) mg/dL AST 32 (5-34) Units/L ALT 25 (0-55) Units/L Alkaline Phosphatase 122 (38-126) Units/L Albumin 3.3 L (3.5-5.0) g/dL Calcium panel 01/08/17 Range/Units 08:20 Calcium 9.1 (8.6-10.8) mg/dL Albumin 3.3 L (3.5-5.0) g/dL Pituitary panel 01/08/17 Range/Units 08:20 Sodium 137 (136-145) mEq/L Potassium 3.6 (3.5-4.5) mEq/L Chloride 105 (98-109) mEq/L Carbon Dioxide 23 (19-29) mEq/L BUN 9 (7-20) mg/dL Creatinine 0.89 (0.57-1.11) mg/dL Glucose 123 H (70-99) mg/dL Calcium 9.1 (8.6-10.8) mg/dL Adrenal panel 01/08/17 Range/Units 08:20 Sodium 137 (136-145) mEq/L Potassium 3.6 (3.5-4.5) mEq/L Chloride 105 (98-109) mEq/L Carbon Dioxide 23 (19-29) mEq/L BUN 9 (7-20) mg/dL Creatinine 0.89 (0.57-1.11) mg/dL Glucose 123 H (70-99) mg/dL Calcium 9.1 (8.6-10.8) mg/dL Total Bilirubin 0.5 (0.2-1.2) mg/dL AST 32 (5-34) Units/L ALT 25 (0-55) Units/L Alkaline Phosphatase 122 (38-126) Units/L Albumin 3.3 L (3.5-5.0) g/dL - VTE Documentation of Mechanical Device: Intermittent pneumatic compression device Consult Discharge Plan - Plan Referrals: Miguel Portillo MD [Non-Partnered Physician] -
[2017-01-08] MEDS ORDERED: Sennosides 8.6 MG TABLET PO SCH (12:00)
--- NOTE | 2017-01-08 14:30 | Discharge Summary ---
Date of Encounter: 01/08/17 Time of Encounter: 14:20 - Discharge Diagnosis (1) Acute cholecystitis Priority: Primary Status: Acute (2) Renal insufficiency Priority: Secondary Status: Acute (3) DVT prophylaxis Priority: Secondary Status: Acute (4) Elevated blood pressure reading Priority: Secondary Status: Acute - Discharge Medications Prescriptions: Docusate [Colace] 200 mg PO BID #30 capsule HYDROcodone/Acet 5/325 mg [Holland 5-325 mg] 1 tab PO Q6H PRN #20 tab PRN Reason: Moderate Pain Omeprazole [PriLOSEC] 40 mg PO DAILY@0630 #30 capsule.[address] Garibay Medications: Divalproex (12 HR) [Depakote (12 HR)] 500 mg PO BID #0 05/10/15 [History] Gabapentin [Neurontin] 800 mg PO TID 05/10/15 [History] LORazepam [Ativan] 1 mg PO QID 05/10/15 [History] Quetiapine Fumarate [Seroquel] 1,200 mg PO HS #0 05/10/15 [History] Oxycodone HCl/Acetaminophen [Percocet 10-325 mg Tablet] 1 tab PO Q6H PRN [History] Phenazopyridine [Pyridium] 300 mg PO TID 01/06/17 [History] Tamsulosin [Flomax] 0.4 mg PO BID 01/06/17 [History] Acetaminophen [Tylenol] 650 mg PO Q6HR PRN #0 tablet 01/08/17 [Rx] Docusate [Colace] 200 mg PO BID #30 capsule 01/08/17 [Rx] HYDROcodone/Acet 5/325 mg [Holland 5-325 mg] 1 tab PO Q6H PRN #20 tab 01/08/17 [Rx ] Omeprazole [PriLOSEC] 40 mg PO DAILY@0630 #30 capsule. 01/08/17 [Rx] Allergies/Adverse Reactions: Allergies No Known Allergies Allergy (Verified 01/06/17 07:42) Date of admission: 01/06/17 14:13 Primary care physician: PCP NO Discharging clinician: Marcelino Booth Anticipated date of discharge: 01/08/17 - Patient Status Disposition: Home, Self-Care Condition: Fair Overall status at discharge: patient is progressing back to baseline - Discharge Instructions Follow Up With: Miguel Portillo MD [Non-Partnered Physician] - Forms: ED Satisfaction Letter, Work/School Release - Diet and Activity Activity: resume usual activities as tolerated Diet: advance to your usual diet Hospital course: Ms.Tracy Linda is a 51-year-old female brought in for abdominal pain and acute cholecystitis. She has laparoscopic cholecystectomy by Dr. Mcqueen. Dr. Mcqueen has examined the patient today and I recommended to let her go. Patient abdominal examination is quite benign as the surrounding belly area is quite soft bowel sound active no organomegaly or discoloration. She will be given some pain medication as she is complaining of quite a bit of pain. White count was slightly elevated but surgery has been noted that this is postop leukocytosis. She is advised to present to ER if symptoms develop or worsen otherwise follow for surgery next week. - Time Spent with Patient Total time spent providing and/or coordinating discharge services: Greater than 30 minutes - Constitutional Vitals: Temp Pulse Resp BP Pulse Ox 99.3 F 95 16 160/97 95 01/08/17 11:56 01/08/17 11:56 01/08/17 11:56 01/08/17 11:56 01/08/17 11:56 General appearance: Present: A&O X 3, answers questions appropriately - Head Head exam: Present: atraumatic, normocephalic - Eye Eye exam: Present: PERRL, conjuntiva pink, sclera anicteric Pupils: Present: PERRL - Neck Neck exam general surgery: Present: supple, trachea midline. Absent: lymphadenopathy - Respiratory Respiratory exam: Present: CTAB. Absent: accessory muscle use, rales, rhonchi, wheezes - Cardiovascular Cardiovascular exam: Present: RRR, +S1, +S2. Absent: diastolic murmur, gallop, rubs, systolic murmur - GI/Abdominal GI/Abdominal exam: Present: normal bowel sounds, soft, no peritoneal signs. Absent: distended, tenderness Additional comments: Abdomen around the surgical site is largely soft with a surgical release. Slightly tender no discharge no rebound tenderness - Extremities Exam Extremities exam: Present: warm, radial pulses palpable and symetrical. Absent : calf tenderness, cyanotic, pedal edema - Neurological Exam Neurological exam: Present: CN II-XII intact, oriented X3, no focal deficits. Absent: pronater drift, facial droop, speech deficit - Skin Skin exam: Present: dry, intact - VTE Documentation of Mechanical Device: Intermittent pneumatic compression device
[2017-01-08 19:21] VITALS: BP 135/85
== END 2017-01-09 | disposition home or self-care (01) ==
LOC: EMEROO 11:19 → 3ANU 11:19
PROVIDERS: ADMIT Internal Medicine; ATTEND Internal Medicine

== ENCOUNTER 2018-06-20 21:28 | Inpatient (IN) ==
[2018-06-21] MEDS ORDERED: Naloxone 0.4 MG/ML INJ IVP PRN ×2 (00:34→01:11)
[2018-06-21] MEDS ORDERED: *HR* OxyCODONE Immed Rel 5 MG TABLET PO PRN (01:11)
[2018-06-21 01:26] LABS: Basophils % 0.3 %; Eosinophils % 0.1 %; Hematocrit 40.8 % (35.3-44.9); Immature Granulocytes % 0.6 % (0-4); Immature Platelets 2.1 % (1.1-6.1); Lymphocytes # 0.8 K/mcL (0.6-4.6); Lymphocytes % 7.6 %; Mean Corpuscular HGB Conc 31.9 g/dL (31.6-35.5); Mean Corpuscular Hemoglobin 29.3 pg (28.0-33.3); Mean Corpuscular Volume 91.9 fL (83.0-100.0); Mean Platelet Volume 9.2 fL (9.4-12.4); Monocytes # 0.2 K/mcL (0.0-1.3); Monocytes % 1.4 %; Neutrophils # 9.8 K/mcL (1.6-8.9); Platelet Count 339 K/mcL (140-400); Red Blood Count 4.44 M/mcL (3.82-4.97); Red Cell Distribution Width 13.7 % (11.5-14.5)
[2018-06-21] MEDS ORDERED: *HR* Heparin 5,000 UNIT/ML VIAL IVP PRN (01:36)
[2018-06-21] MEDS ORDERED: *HR* Heparin 5,000 UNIT/ML VIAL IVP ONE (01:36)
[2018-06-21 01:51] LABS: Alanine Aminotransferase 36 Units/L (7-52); Albumin 4.1 g/dL (3.5-5.7); Albumin/Globulin Ratio 1.6 (1.1-2.2); Alkaline Phosphatase 128 Units/L (34-104); Aspartate Amino Transferase 19 Units/L (13-39); BUN/Creatinine Ratio 13 (6-26); Bilirubin,Total 0.4 mg/dL (0.3-1.0); Blood Urea Nitrogen 12 mg/dL (6-20); Calcium 9.3 mg/dL (8.6-10.3); Carbon Dioxide 25 mEq/L (23-29); Chloride 101 mEq/L (98-107); Globulin 2.5 g/dL (2.4-3.5); Glucose 141 mg/dL (70-105); Osmolality,Calculated 282 (280-300); Potassium 4.2 mEq/L (3.5-5.1); Sodium 135 mEq/L (136-145); Total Protein 6.6 g/dL (6.4-8.9); eGFR For Non-African Americans > 60 (> 60)
[2018-06-21 01:52] LABS: Troponin I < 0.03 ng/mL (< 0.04)
[2018-06-21] MEDS: Heparin 25,000 UNIT/500 ML D5W 25,000 UNIT/500 ML BAG IVC SCH ×2 (02:00→20:36)
[2018-06-21] MEDS: *HR* LORazepam 1 MG TABLET PO PRN ×2 (02:11→06:02)
[2018-06-21] MEDS: Acetaminophen 325 MG TABLET PO PRN ×2 (02:11→10:44)
[2018-06-21 02:19] LABS: Activated Partial Thrombo Time 95.3 Seconds (26.0-36.0); Prothrombin Time 11.2 Seconds (9.4-12.1)
[2018-06-21] MEDS: traMADol 50 MG TABLET PO PRN ×3 (03:24→20:35)
--- NOTE | 2018-06-21 04:52 | Internal Med History&Physical ---
Date of Encounter: 06/21/18 Time of Encounter: 04:52 Internal Medicine - H&P: HPI Chief complaint: B/L Pulmonary Embolism History of present illness: Ms. Ramirez is a 52 year old female with a past medical history of bipolar disorder, anxiety, hypertension, nephrolithiasis, seizures, and previous history of suicidal attempt who initially presented to [facility] with complaints of epigastric pain with nausea and vomiting. Patient was noted to be hypoxemic on room air saturating at 88%. After further workup CTA revealed bilateral subsegmental PEs. Patient was subsequently started on a heparin drip. Additionally, while at [facility], patient endorsed to the staff that she's had suicidal thoughts and "does not want to live like this any longer". Patient also endorses that she had been off her bipolar medications for the past 2 weeks because she could not pay the co-pay. As such she states that her mood has been "crashing". A mental health counselor at [facility] was contacted and would see the patient when she is medically cleared. Patient arrived, found to be hemodynamically stable and cooperative. Patient states that she has been having epigastric pain associated with vomiting and dry heaves for the past 3 days with 6 episodes of nonbloody slightly bilious emesis. Pain was described as sharp and sore, worse with deep inspiration. On arrival here patient was satting at 91% on room air and has been endorsing pleuritic chest pain upon deep inspiration. She does report a previous history of a DVT and was placed on several months of blood thinners. She also states that her mother has a history of blood clots as well. Patient otherwise denies recent travel, recent surgery, previous history of malignancy or weight loss. Patient also states that she noted chest pain this morning around 10:30 described as predominantly left-sided heaviness associated with difficulty breathing. Patient does smoke a pack a day and has been doing so for the past 20 years. Denies any alcohol use. She reports a significant family history of cardiac disease, noting that her mother of a [place]. Her father also has heart disease. Patient also endorses a dry cough for the last couple days. She initially thought she may have had the flu though denies any sick contacts. She does endorse fever and chills for the past 7 days and stated that she checked her temperature at home and found to be 100.4 yesterday. CTA performed at [facility] reported nonspecific findings which may represent nonvisualized PEs versus multifactorial pneumonia. Patient did have a mildly elevated white blood cell count of 14.3. Patient is also reporting right-sided flank pain for the past 5 days which she states is similar to her previous episodes of kidney stones. She states she has an extensive history of kidney stones and has had surgical removal as well as lithotripsy in the past. She states that her urine is also dark in color which she equates to blood in her urine based on previous experience. CT of the abdomen performed at [facility] showed a nonobstructing right sided renal calculi measuring up to 3 mm with mild to moderate right-sided hydronephrosis. However when compared to previous exams, stone appear to be chronic. UA performed at [facility] showed trace leukocyte esterase, negative nitrite and minimal evidence of hematuria. At this time patient denies any suicidal ideation or thoughts of harming herself. She states that she believes that she misunderstood the questioning while at [facility] with regards to thoughts of harming herself. Patient does see a psychiatrist as outpatient. Past Med Surg Social Fam HX - Past Medical History Medical history: hypertension, kidney stones, seizures Additional medical history: Last seizure has occured today at around 0900. urinary incontinence at times. Psychiatric history: bipolar, depression - Past Surgical History Surgical History: cholecystectomy, hysterectomy Additional surgical history: lithotripsy x 9 - Social History Smoking Status: Current every day smoker Packs per day: 1 Smokeless Tobacco Status: No Alcohol use: none Drug use: none - Family History Mother History Unknown: Yes Living Status: Hx Family Cardiac Disorders: Yes Hx Family Respiratory Disorders: No Hx Family Cancer: No Hx Family GI Disorders: No Hx Family Endocrine Disorder: No Hx Family Neuromuscular Disorders: No Internal Medicine - H&P: Meds Divalproex (12 HR) [Depakote (12 HR)] 500 mg PO BID #0 05/10/15 [History] Gabapentin [Neurontin] 800 mg PO TID 05/10/15 [History] LORazepam [Ativan] 1 mg PO QID 05/10/15 [History] Quetiapine Fumarate [Seroquel] 1,200 mg PO HS #0 05/10/15 [History] Acetaminophen [Tylenol] 650 mg PO Q6HR PRN #0 tablet 01/08/17 [Rx] Omeprazole [PriLOSEC] 40 mg PO DAILY@0630 #30 capsule. 01/08/17 [Rx] Allergy/AdvReac Type Severity Reaction Status Date / Time No Known Allergies Allergy Verified 01/06/17 07:42 All Systems PM: A 10-system review of systems was performed and is negative for pertinent findings except as documented above in the HPI. - Constitutional Constitutional: no chills, no fever(s), no night sweats - EENT Eyes: no change in vision, no discharge, no pain, no photophobia Ears: no ear discharge, no ear pain, no tinnitus Nose, mouth and throat: no dysphagia, no nasal discharge, no neck pain, no sore throat - Cardiovascular Cardiovascular ROS IM: no chest pain, no diaphoresis, no dyspnea, no lightheadedness, no palpitations, no syncope - Respiratory Respiratory: no cough, no dyspnea, no wheezing, no excessive phlegm production - Gastrointestinal Gastrointestinal: no abdominal pain, no diarrhea, no hematemesis, no hematochezia, no melena, no nausea, no vomiting - Genitourinary Genitourinary: no change in urinary stream, no dysuria, no flank pain, no hematuria - Musculoskeletal Musculoskeletal ROS IM: no numbness, no tingling - Integumentary Integumentary IM: no rash, no unusual bruising - Neurological Neurological ROS: no confusion, no convulsions, no focal weakness, no numbness, no tingling, no tremor(s) - Hematologic/Lymphatic Hematologic/Lymphatic: no easy bruising - Constitutional Vitals: Pulse Resp BP Pulse Ox 87 16 149/92 94 06/21/18 03:49 06/21/18 03:49 06/21/18 03:49 06/21/18 03:49 Exam: General: Alert and oriented Skin:Normal color, no rash, no lesions. HEENT:EOM, pupils equal, round and reactive. Cardiovascular:Normal S1 & S2, no rubs, murmurs or gallops. No JVD. Pulse regular. Lungs: Diminished breath sounds bilaterally, no wheezes or crackles. Abdomen: Soft, non-tender, no rigidity. CVA tenderness elicited bilaterally. Extremities:No deformity, trace edema, no joint swelling or clubbing. Neurological:Normal cognition and motor skills. Pulses:Carotid and radial pulses normal +2. Rest of the physical exam is non contributory Internal Med - H&P Results - Labs CBC & Chem 7: 06/21/18 00:44 06/21/18 00:44 Labs: Short CBC 06/21/18 Range/Units 00:44 WBC 10.9 (4.3-11.1) K/mcL Hgb 13.0 (11.5-15.4) g/dL Hct 40.8 (35.3-44.9) % Plt Count 339 (140-400) K/mcL Neutrophils # 9.8 H (1.6-8.9) K/mcL BMP 06/21/18 00:44 Sodium 135 L Potassium 4.2 Chloride 101 Carbon Dioxide 25 BUN 12 Creatinine 0.94 Glucose 141 H Calcium 9.3 Cardiac Enzymes 06/21/18 Range/Units 00:44 Troponin I < 0.03 (< 0.04) ng/mL Liver Function 06/21/18 Range/Units 00:44 Total Bilirubin 0.4 (0.3-1.0) mg/dL AST 19 (13-39) Units/L ALT 36 (7-52) Units/L Alkaline Phosphatase 128 H (34-104) Units/L Albumin 4.1 (3.5-5.7) g/dL - Assessment and plan (1) Pulmonary emboli Current Visit: No Status: Acute Assessment and plan: Bilateral sub-segmental pulmonary embolism associated with mild hypoxemia and pleuritic chest pain. CT angiogram of the chest performed at [facility] demonstrated small subsegmental embolus in the right lower lobe and suspected small segmental embolus in the right middle lobe. At this point PE appears to be unprovoked and given her previous history of DVT and family history, will likely outpatient workup and long-term anticoagulation. Patient currently stable from a respiratory and hemodynamic standpoint. Initial troponin obtained here was negative. -Continue supportive O2 -Continue heparin drip and transition to by mouth regimen per day team -Obtain echocardiogram in the morning -Consider pulmonary consult Qualifiers: Pulmonary embolism type: other Chronicity: acute Acute cor pulmonale presence: without acute cor pulmonale Qualified Code(s): I26.99 - Other pulmonary embolism without acute cor pulmonale (2) Hypoxemia Current Visit: Yes Status: Acute Assessment and plan: Hypoxemia with a O2 saturation of 91% on room air. Likely secondary to above. Patient does report flulike symptoms as well. Low suspicion for pneumonia. -We will obtain respiratory viral panel as well as blood cultures. Repeat CBC shows that her white blood cell count is now within normal limits. Recommend monitoring for now. (3) Chest pain Current Visit: Yes Status: Acute Assessment and plan: Atypical chest pain in the setting of bilateral subsegmental PE. Patient also has significant risk factors for coronary artery disease given her smoking history and family history. Symptoms may be secondary to right heart strain versus demand ischemia versus ACS. Initial troponin was negative. -will give loading dose of aspirin -we will obtain EKG -Trend troponin -Continue telemetry -Obtain echocardiogram -Consider cardiology consult - Qualifiers: Ischemic chest pain type: unspecified angina pectoris type Qualified Code(s): I25.9 - Chronic ischemic heart disease, unspecified (4) Kidney stones Current Visit: No Status: Acute Assessment and plan: Patient endorses right-sided flank pain which she states is similar to previous episodes of nephrolithiasis. Her CT of the abdomen however shows nonobstructing 3 mm right-sided renal calculi with mild to moderate right-sided mild to moderate hydronephrosis which appears to be chronic when compared to previous imaging. Per radiology, if there is further concern for symptomatic urinary obstruction, further evaluation with a noncontrast CT of the pelvis would be recommended as the current exam was only of the abdomen. At this time patient appears to be clinically stable without evidence of sepsis or UTI based on a UA performed at [facility]. -Continue IV fluids -Follow-up blood cultures -Pain control -Consider urology consult if symptoms persist (5) Suicidal ideation Current Visit: Yes Status: Acute Assessment and plan: While at [facility], per report, patient admitted to the nurse that she had suicidal thoughts and "does not want to live like this any longer". Patient currently states that she misunderstood questioning and does not want to harm herself nor does she have any thoughts of harming herself at this time. -We will continue the one-to-one sitter -Psychiatry consult in the morning. (6) Epigastric pain Current Visit: No Status: Acute Assessment and plan: Epigastric pain associated with nausea and vomiting. Symptoms appear to have resolved. We will monitor for now (7) Bipolar disorder Current Visit: No Status: Acute Assessment and plan: History of bipolar disorder. Patient reports that she ran out of her medications a days ago because she cannot pay the co-pay. She is being followed outpatient by psychiatry. -Recommend psychiatry's input -We will obtain chest secondary social studies teacher consult for aid in obtaining medications. Qualifiers: Qualified Code(s): F31.9 - Bipolar disorder, unspecified (8) DVT prophylaxis Current Visit: Yes Status: Acute Assessment and plan: Continue with heparin drip. - Time Spent With Patient Total time spent is greater than 50% in coordination of care (as documented) at patient's floor/unit and/or counseling patient:
[2018-06-21] MEDS ORDERED: Aspirin 325 MG TABLET PO ONE (05:40)
[2018-06-21 07:44] LABS: Adenovirus Not Detected (Not Detect); Bordetella Pertussis Not Detected (Not Detect); Chlamydophila pneumoniae Not Detected (Not Detect); Coronavirus 229E Not Detected (Not Detect); Coronavirus HKU1 Not Detected (Not Detect); Coronavirus NL63 Not Detected (Not Detect); Coronavirus OC43 Not Detected (Not Detect); Human Metapneumovirus Not Detected (Not Detect); Human Rhinovirus/Enterovirus DETECTED (Not Detect); Influenza A Subtype 2009 H1 Not Detected (Not Detect); Influenza A Untypeable Not Detected (Not Detect); Influenza B Not Detected (Not Detect); Mycoplasma pneumoniae Not Detected (Not Detect); Parainfluenza Virus 1 Not Detected (Not Detect); Parainfluenza Virus 2 Not Detected (Not Detect); Parainfluenza Virus 3 Not Detected (Not Detect); Parainfluenza Virus 4 Not Detected (Not Detect); Respiratory Syncytial Virus Not Detected (Not Detect)
[2018-06-21] MEDS ORDERED: Nicotine 14 MG PATCH.TD24 TD SCH (09:00)
--- NOTE | 2018-06-21 11:47 | Consult Note ---
Date of Encounter: 06/21/18 Time of Encounter: 11:40 Assessment & Recommendation (1) Bipolar disorder Current visit: No Status: Acute Assessment & Recommendation: Client claims to be on rather excessive doses of medications. She reports she fills her meds at [facility] in [place]. Would contact pharmacy and verify doses and insure prescriptions are current before giving her controlled substances. Provided mental health meds will not interfere with treatment for current medical issues can go ahead and start Depakote and Seroquel. Can start Depakote at 500mg BID and check a VPA level in five days if still inpatient. Would not start Seroquel at 1200mg. Recommend a fourth of that dose and can titrate up while she is here depending on clinical response. Would monitor for benzo withdrawal. If she was really taking 5mg a day would expect some degree of withdrawal. Would not restart Ativan or Neurontin until doses/prescriptions verified. Client denies SI today but reports SI as recently as yesterday. Would continue sitter for now. Will follow along. Qualifiers: Active/Remission status: currently active Current bipolar episode type: depressed Current episode severity: moderate Qualified Code(s): F31.32 - Bipolar disorder, current episode depressed, moderate History of Present Illness Requesting Physician: Selin Redding MD Reason for consult: bipolar disorder History of present illness: Ms. Ramirez is a 52 year old female with Bipolar Disorder who was admitted secondary to bilateral pulmonary emboli. Off mental health meds for "one week" as she cannot afford co-pays. Reportedly endorsed SI at outside facility. Denies SI now but states she experienced SI as recently as yesterday. Five previous inpatient hospitalizations. Past suicide attempt via cutting her wrist. Denies AOD use. Claims her home medications are Seroquel 1200mg qhs, Depakote 500mg BID, Ativan 1mg five times a day and Neurontin 800mg six times a day. These doses seem excessive. Client reports she fills her prescriptions at [facility] in [place]. Will need to verify that these doses are accurate and prescriptions current. Client does not appear to be withdrawing from benzos but will need to monitor for this. Vague about who she sees as an outpatient. Claims she sees a physician via telepsych that she had while inpatient at [facility]. States she sees him twice a year. Given the doses of meds she claims to be on any prescriber would likely want to see her more frequently than twice a year. CC: Selin Redding MD Past Med Surg Social Fam HX - Past Medical History Medical history: hypertension, kidney stones, seizures - Past Psychiatric History Psychiatric history: Reports: bipolar, prior suicide attempt, previous psychiatric hospitalization Family psychiatric history: Unknown Family History of Suicide: Unknown - Past Surgical History Surgical History: cholecystectomy, hysterectomy - Social History Smoking Status: Current every day smoker Smokeless Tobacco Status: No Alcohol use: none Drug use: none - Family History Mother History Unknown: Yes Adopted: No Living Status: Cause of : [place] Hx Family Cardiac Disorders: Yes Hx Family Respiratory Disorders: No Hx Family Cancer: No Hx Family GI Disorders: No Hx Family Endocrine Disorder: No Hx Family Neuromuscular Disorders: No Medications & Allergies Divalproex (12 HR) [Depakote (12 HR)] 500 mg PO BID #0 05/10/15 [History] Gabapentin [Neurontin] 800 mg PO TID 05/10/15 [History] LORazepam [Ativan] 1 mg PO 5XD 05/10/15 [History] Quetiapine Fumarate [Seroquel] 1,200 mg PO HS #0 05/10/15 [History] Acetaminophen [Tylenol] 650 mg PO Q6HR PRN #0 tablet 01/08/17 [Rx] Omeprazole [PriLOSEC] 40 mg PO DAILY@0630 #30 capsule. 01/08/17 [Rx] Allergy/AdvReac Type Severity Reaction Status Date / Time No Known Allergies Allergy Verified 01/06/17 07:42 Review of Systems Constitutional: Reports: other Eyes: Denies: eye pain, vision change Ears, Nose, Throat: Denies: ear pain, throat pain, dental pain, hearing loss, congestion Cardiovascular: Denies: chest pain, palpitations, dyspnea on exertion Respiratory: Reports: other Gastrointestinal: Denies: abdominal pain, nausea, vomiting, diarrhea, constipation Genitourinary female: Denies: urgency, dysuria, frequency, abnormal menses, dyspareunia Musculoskeletal: Denies: joint swelling, joint pain Integumentary: Denies: rash, lesions, pruritus Neurological: Denies: headache, weakness, numbness, memory loss Endocrine: Denies: fatigue, heat or cold intolerance Hematologic/Lymphatic: Denies: easy bruising, lymphadenopathy Allergic/Immunologic: Denies: urticaria, itchy eyes Psychiatry Exam - Constitutional Vitals: Temp Pulse Resp BP Pulse Ox 97.9 F 77 16 139/100 99 06/21/18 10:55 06/21/18 10:55 06/21/18 03:49 06/21/18 10:55 06/21/18 10:55 General appearance: age & developmentally appropriate, well-groomed, well- nourished - Musculoskeletal Gait: other Station: relaxed Strength & Tone: normal for patient - Psychiatric Patient Orientation: Yes Person, Yes Time, Yes Place Level of alertness: Alert Behavior: calm, cooperative Psychomotor activity: Normal Eye Contact: Maintains Eye Contact Mood Description: Depressed Affect description: congruent with mood Speech Volume: Normal Speech pattern: normal rate, normal rhythm, normal tone, fluent, spontaneous Language & Vocabulary: consistent with education Thought Process: Linear Thought Content: No Suicidal ideation, No Homicidal ideation, No Overt delusions Perceptual Disturbances: No Auditory hallucinations, No Visual hallucinations Attention Span Ability: Capable of Focused Attention Memory Description: Grossly Intact Patient Reliability: Questionable Historian Fund of knowledge: Yes abstraction ability, Yes aware of current events Intelligence Estimate: Average Judgment: Fair Insight: Partial Results - Labs Labs: Laboratory Last Values WBC 10.9 K/mcL (4.3-11.1) 06/21/18 00:44 RBC 4.44 M/mcL (3.82-4.97) 06/21/18 00:44 Hgb 13.0 g/dL (11.5-15.4) 06/21/18 00:44 Hct 40.8 % (35.3-44.9) 06/21/18 00:44 MCV 91.9 fL (83.0-100.0) 06/21/18 00:44 MCH 29.3 pg (28.0-33.3) 06/21/18 00:44 MCHC 31.9 g/dL (31.6-35.5) 06/21/18 00:44 RDW 13.7 % (11.5-14.5) 06/21/18 00:44 Plt Count 339 K/mcL (140-400) 06/21/18 00:44 MPV 9.2 fL (9.4-12.4) L 06/21/18 00:44 Immature Gran % 0.6 % (0-4) 06/21/18 00:44 Seg Neutrophils % 90.0 % 06/21/18 00:44 Lymphocytes % 7.6 % 06/21/18 00:44 Monocytes % 1.4 % 06/21/18 00:44 Eosinophils % 0.1 % 06/21/18 00:44 Basophils % 0.3 % 06/21/18 00:44 Neutrophils # 9.8 K/mcL (1.6-8.9) H 06/21/18 00:44 Lymphocytes # 0.8 K/mcL (0.6-4.6) 06/21/18 00:44 Monocytes # 0.2 K/mcL (0.0-1.3) 06/21/18 00:44 Eosinophils # 0.0 K/mcL (0.0-0.6) 06/21/18 00:44 Basophils # 0.0 K/mcL (0.0-0.2) 06/21/18 00:44 Immature Plt Fraction 2.1 % (1.1-6.1) 06/21/18 00:44 PT 11.2 Seconds (9.4-12.1) 06/21/18 00:44 INR 1.0 06/21/18 00:44 APTT 95.3 Seconds (26.0-36.0) H 06/21/18 00:44 Heparin Anti-Xa, Unfract 0.39 IU/mL (0.30-0.70) 06/21/18 07:43 Sodium 135 mEq/L (136-145) L 06/21/18 00:44 Potassium 4.2 mEq/L (3.5-5.1) 06/21/18 00:44 Chloride 101 mEq/L (98-107) 06/21/18 00:44 Carbon Dioxide 25 mEq/L (23-29) 06/21/18 00:44 BUN 12 mg/dL (6-20) 06/21/18 00:44 Creatinine 0.94 mg/dL (0.60-1.20) 06/21/18 00:44 Est GFR ( Amer) > 60 (> 60) 06/21/18 00:44 Est GFR (Non-Af Amer) > 60 (> 60) 06/21/18 00:44 BUN/Creatinine Ratio 13 (6-26) 06/21/18 00:44 Glucose 141 mg/dL (70-105) H 12 00:44 Calculated Osmolality 282 (280-300) 06/21/18 00:44 Calcium 9.3 mg/dL (8.6-10.3) 06/21/18 00:44 Total Bilirubin 0.4 mg/dL (0.3-1.0) 06/21/18 00:44 AST 19 Units/L (13-39) 06/21/18 00:44 ALT 36 Units/L (7-52) 06/21/18 00:44 Alkaline Phosphatase 128 Units/L (34-104) H 06/21/18 00:44 Troponin I < 0.03 ng/mL (< 0.04) 06/21/18 07:43 Serum Total Protein 6.6 g/dL (6.4-8.9) 06/21/18 00:44 Albumin 4.1 g/dL (3.5-5.7) 06/21/18 00:44 Globulin 2.5 g/dL (2.4-3.5) 06/21/18 00:44 Albumin/Globulin Ratio 1.6 (1.1-2.2) 06/21/18 00:44 Chlamy pneumoniae PCR Not Detected (Not Detect) 06/21/18 06:40 Adenovirus (PCR) Not Detected (Not Detect) 06/21/18 06:40 B. pertussis DNA (PCR) Not Detected (Not Detect) 06/21/18 06:40 B.parapertussis DNA PCR Not Detected (Not Detect) 06/21/18 06:40 Coronavirus OC43 (PCR) Not Detected (Not Detect) 06/21/18 06:40 Coronavirus HKU1 (PCR) Not Detected (Not Detect) 06/21/18 06:40 Coronavirus 229E (PCR) Not Detected (Not Detect) 06/21/18 06:40 Coronavirus NL63 (PCR) Not Detected (Not Detect) 06/21/18 06:40 Human Metapneumovir PCR Not Detected (Not Detect) 06/21/18 06:40 Influenza A (H1) PCR Not Detected (Not Detect) 06/21/18 06:40 Influ A (H1N1/09) PCR Not Detected (Not Detect) 06/21/18 06:40 Influenza A (H3) PCR Not Detected (Not Detect) 12 06:40 Influenza A Untype (PCR) Not Detected (Not Detect) 06/21/18 06:40 Influenza Type B (PCR) Not Detected (Not Detect) 12 06:40 M.pneumoniae DNA (PCR) Not Detected (Not Detect) 12 06:40 Parainfluenza 1 (PCR) Not Detected (Not Detect) 06/21/18 06:40 Parainfluenza 2 (PCR) Not Detected (Not Detect) 06/21/18 06:40 Parainfluenza 3 (PCR) Not Detected (Not Detect) 06/21/18 06:40 Parainfluenza 4 (PCR) Not Detected (Not Detect) 06/21/18 06:40 RSV (PCR) Not Detected (Not Detect) 06/21/18 06:40 Entero/Rhino (PCR) DETECTED (Not Detect) A 06/21/18 06:40
--- NOTE | 2018-06-21 14:06 | Event Note ---
Date of Encounter: 06/21/18 Time of Encounter: 13:50 Patient currently saturating well and breathing improved. Still with some right flank pain. Constant nonradiating. Denies any urinary hesitancy, but has some burning. No fevers chills nausea vomiting or diarrhea. Exam General: In no acute distress. Conversant. Obese. Respiratory exam: no accessory muscle use, rhonchi, wheezes. Crackles at bases Cardiovascular exam: RRR, +S1, +S2. no murmur, gallop, rubs. GI/Abdominal exam: Non-tender, Non-distended, normal bowel sounds, soft, no peritoneal signs. Mild tenderness in the right flank Extremities exam: full ROM, 1+ pedal edema, warm, pulses palpable in b/l lower extremities. no calf tenderness Neurological exam: CN II-XII intact, AO X3, no focal deficits. no pronater drift, facial droop, speech deficit Skin exam: No skin rash, ulcer, purpura or ecchymosis. Assessment 1 bilateral sub-segmental PE 2 flank pain with history of kidney stones 3 suicidal ideation 4 bipolar disorder 5 DVT prophylaxis 6 hypoxia 7 nonobstructive right sided renal calculi of 3 mm Plan - Hypoxia likely multifactorial from PE, viral infection and mild heart failure - Continue IV heparin drip for PE. Would discharge on oral anticoagulants after pricing tomorrow. - We will does 20 mg IV Lasix given bilateral crackles and 1+ pedal edema. Echo with EF of 60-65, mild diastolic dysfunction - Repeat UA given burning urination and still with back pain. However appears atypical. CT with nonobstructive right-sided calculi 3 mm. Mild to moderate hydronephrosis chronic based on previous exam. We will obtain CT pelvis noncontrast. Strain urine for stone. - Psychiatry following. We will restart Depakote and Seroquel with dosage per psych. Monitor for benzo withdrawal - Denies suicidal ideation currently but was previously reporting. Continue sitter
[2018-06-21] MEDS ORDERED: Furosemide 20 MG/2 ML VIAL IVP ONE (14:10)
[2018-06-21 15:15] LABS: Bilirubin,Urine Negative (Negative); Blood,Urine Negative (Negative); Clarity,Urine Clear (Clear); Color,Urine Yellow (Yellow); Glucose,Urine (UA) Normal (Normal); Ketones,Urine Negative (Negative); Leukocyte Esterase,Urine Trace (Negative); Nitrite,Urine Negative (Negative); PH,Urine 6.5 pH Units (5.0-8.0); Protein,Urine Negative (Neg-Trace); Specific Gravity,Urine 1.018 (1.010-1.025); Urobilinogen,Urine Normal (Normal)
[2018-06-21 15:17] LABS: Bacteria,Urine Few per hpf (None-Few); Hyaline Casts,Urine None Seen per lpf (None-Few); RBC,Urine 0-3 per hpf (0-3); Squamous Epithelial Cell,Urine Many per lpf (None-Few)
[2018-06-21] MEDS: *HR* Heparin 5,000 UNIT/ML VIAL IVP PRN (16:07)
[2018-06-21] MEDS: Divalproex (12 HR) 500 MG TABLET PO SCH (20:35)
[2018-06-21] MEDS ORDERED: *HR* LORazepam 2 MG/ML VIAL IVP ONE (22:50)
[2018-06-21] MEDS ORDERED: *HR* LORazepam 1 MG TABLET PO PRN (22:51)
[2018-06-22] MEDS: *HR* Heparin 5,000 UNIT/ML VIAL IVP PRN (06:18)
[2018-06-22] MEDS ORDERED: Furosemide 20 MG/2 ML VIAL IVP SCH (08:30)
[2018-06-22] MEDS ORDERED: *HR* LORazepam 1 MG TABLET PO PRN (08:31)
[2018-06-22] MEDS ORDERED: Nicotine 21 MG PATCH.TD24 TD SCH (09:00)
[2018-06-22] MEDS: Divalproex (12 HR) 500 MG TABLET PO SCH (10:11)
[2018-06-22 13:54] VITALS: BP 147/105
[2018-06-22] MEDS ORDERED: Ondansetron 4 MG/2 ML VIAL IVP STA (14:51)
[2018-06-22] MEDS ORDERED: *HR* Rivaroxaban 15 MG TABLET PO SCH (16:30)
--- NOTE | 2018-06-22 16:55 | Electrocardiograph Report ---
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
--- NOTE | 2018-06-22 17:21 | Discharge Summary ---
- NOTES TO OUTPATIENT PROVIDER Notes to Outpatient Provider: Patient needs to follow up with her on psychiatry for medications refill. Started on xarelto for PE. Orders not resulted at time of discharge: Pending orders 06/21/18 00:34 ECG 12 lead ECG [ECG] Routine 06/21/18 01:56 Culture,Blood [BC] Stat 06/21/18 15:04 UA w. reflex culture [Urinalysis Reflex Cult & Micro] [URIN] Routine 06/22/18 18:00 Heparin anti-factor XA UFH [COAG] Timed 06/23/18 04:00 Basic Metabolic Panel AM 0400 Date of Encounter: 06/22/18 Time of Encounter: 17:19 - Discharge Diagnosis (1) Bipolar disorder Priority: Secondary Status: Acute Qualifiers: Active/Remission status: currently active Current bipolar episode type: depressed Current episode severity: moderate Qualified Code(s): F31.32 - Bipolar disorder, current episode depressed, moderate (2) Kidney stones Priority: Secondary Status: Acute (3) Pulmonary emboli Priority: Primary Status: Acute Qualifiers: Pulmonary embolism type: other Chronicity: acute Acute cor pulmonale presence: without acute cor pulmonale Qualified Code(s): I26.99 - Other pulmonary embolism without acute cor pulmonale (4) Hypoxemia Priority: Primary Status: Acute (5) Chest pain Priority: Primary Status: Acute Qualifiers: Ischemic chest pain type: unspecified angina pectoris type Qualified Code(s): I25.9 - Chronic ischemic heart disease, unspecified (6) Suicidal ideation Priority: Secondary Status: Acute (7) DVT prophylaxis Priority: Secondary Status: Acute Hospital course: Ms. Ramirez is a 52 year old female past medical history of bipolar disorder, anxiety, hypertension, nephrolithiasis who came in complaining of difficulty breathing was found to have hypoxia. CTA showed bilateral subsegmental PE. Patient was started on heparin drip. Patient was found to have positive testing for rhinovirus/enterovirus. She was hemodynamically stable throughout her stay in hospital. Psychiatry consult was obtained for suicidal ideation initially as well as management for her bipolar disorder. However patient denied it later on. Patient was also noted to have mild CHF with mild crackles as well as 1+ pedal edema. Patient's echocardiogram showed EF of 60-65 mild left ventricular diastolic dysfunction. No right ventricular strain was observed. she was diuresed with Lasix which improved her breathing. She was plan to have discharged on xarelto which was arranged however she mentioned she did not have her psychiatric medication. Psychiatrist was able to write her a prescription for all her home medication for 5 days except phentermine. She was asked to follow with her PCP as well as psychiatrist. Discussed about the importance of continuing her xarelto as well as psychiatric medication and following up with PCP Discharge discussed with: patient, nurse, social work, otm consultant - Time Spent with Patient Total time spent providing and/or coordinating discharge services: Greater than 30 minutes (45) - Discharge Medications Prescriptions: Rivaroxaban [Xarelto] 1 dose PO AD 30 Days pack Home Medications: Divalproex (12 HR) [Depakote (12 HR)] 500 mg PO BID #0 05/10/15 [History] LORazepam [Ativan] 1 mg PO QID 05/10/15 [History] Acetaminophen [Tylenol] 650 mg PO Q6HR PRN #0 tablet 01/08/17 [Rx] Gabapentin [Neurontin] 800 mg PO 6XD 06/21/18 [History] Phentermine HCl [Adipex-P] 37.5 mg PO DAILY 06/22/18 [History] Quetiapine Fumarate 800 mg PO HS 06/22/18 [History] Quetiapine Fumarate [Seroquel] 400 mg PO HS 06/22/18 [History] Rivaroxaban [Xarelto] 1 dose PO AD 30 Days pack 06/22/18 [Rx] Allergies/Adverse Reactions: Allergy/AdvReac Type Severity Reaction Status Date / Time No Known Allergies Allergy Verified 01/06/17 07:42 Date of admission: 06/20/18 23:11 Primary care physician: PCP NONE Consults: 06/21/18 00:19 Consult to Nutrition [CONS] Routine Comment: Consulting Provider: NUTRITION Reason for Dietary Consult: MST Score Consult to [employer] [CONS] Routine Reason for SW Consult: unable to afford medication copays and non-compliant with meds 06/21/18 05:42 Consult to Psychiatry [CONS] Routine Consulting Provider: Psychiatry Ivonne Reason consult: Sitter/1:1 Other reason and/or additional details: Patient with a history of bipolar disorder and previous suicidal attempt admitted for bilateral pulmonary embolism. Endorsed thoughts of harming herself at [facility] prior to transfer to here. Patient has been off her bipolar medications for the past 8 days she cannot afford the co-pay. Discharging clinician: Selin Redding - Constitutional Vitals: Temp Pulse Resp BP Pulse Ox 97.9 F 82 16 147/105 93 06/22/18 13:50 06/22/18 13:50 06/22/18 13:50 06/22/18 13:50 06/22/18 13:50 Exam: General: In no acute distress. Conversant. Obese. Respiratory exam: no accessory muscle use, rhonchi, wheezes. Minimal crackles at base. Cardiovascular exam: RRR, +S1, +S2. no murmur, gallop, rubs. GI/Abdominal exam: Non-tender, Non-distended, normal bowel sounds, soft, no peritoneal signs. Mild tenderness in the right flank Extremities exam: full ROM, 1+ pedal edema, warm, pulses palpable in b/l lower extremities. no calf tenderness Neurological exam: CN II-XII intact, AO X3, no focal deficits. no pronater drift, facial droop, speech deficit Skin exam: No skin rash, ulcer, purpura or ecchymosis. - Patient Status Disposition: Home, Self-Care Condition: Fair - Discharge Instructions Instructions: Rivaroxaban (By mouth), Pulmonary Embolism (DC), Pulmonary Embolism (GEN) Follow Up With: Jenna Nuñez, BAND SAWYER [Advanced Practice Nurse] - 06/29/18 3:15 pm - Diet and Activity Activity: increase activity as tolerated
== END 2018-06-22 19:17 | disposition home or self-care (01) | DRG 176 ==
LOC: SUATTDRO 23:11 → 2NENU 23:11
PROVIDERS: ADMIT Internal Medicine; ATTEND Internal Medicine